=== PATIENT | male | born 1960 | race Hispanic/Latino ===

== ENCOUNTER 2020-04-28 12:58 | Outpatient (CLI) | payer OTHER ==
--- NOTE | 2020-04-28 15:13 | XRay Report ---
RIGHT KNEE 2 VIEWS INDICATION / CLINICAL INFORMATION: PAIN. COMPARISON: None available. FINDINGS: Moderate patellofemoral degenerative change. No other significant skeletal abnormality Signer Name: Subhash Simons MD FACLiza Signed: 04/28/2020 3:13 PM Workstation Name: [id number]
--- NOTE | 2020-04-28 15:16 | XRay Report ---
LUMBAR SPINE 3 VIEWS INDICATION / CLINICAL INFORMATION: PAIN. COMPARISON: None available. FINDINGS: Moderate diffuse degenerative change throughout the lumbar region. No other significant skeletal abno rmality. Alignment is normal. Signer Name: Subhash Simons MD FACR Signed: 04/28/2020 3:15 PM Workstation Name: [id number]
== END 2020-04-28 12:59 | disposition home or self-care (01) ==
LOC: XRAY 12:58
PROVIDERS: ATTEND Internal Medicine
DX: M17.11 Unilateral primary osteoarthritis, right knee (principal); M47.816 Spondylosis without myelopathy or radiculopathy, lumbar region
CPT/HCPCS: 72100